=== PATIENT | female | born 1980 | race Caucasian/White ===

== ENCOUNTER 2024-04-23 10:30 | Emergency (ER) | payer OTHER, SELFPAY ==
[2024-04-23 10:31] VITALS: BMI 20.4
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
[2024-04-23] MEDS: NSS 1000 IV (10:51)
[2024-04-23 10:52] LABS: % Basophils 0.7 % (0-2); % Eosinophils 1.1 % (0-6); % Immature Granulocytes 0.5 % (0-0.5); % Lymphocytes 9.6 % (20.5-51.1); % Monocytes 4.6 % (1.7-9.3); % Neutrophils 83.5 % (42.2-75.2); Absolute Basophils 0.1 10^3/uL (0-0.2); Absolute Eosinophils 0.1 10^3/uL (0-0.7); Absolute Immature Granulocytes 0.1 10^3/uL (0-0.05); Absolute Lymphocytes 1.2 10^3/uL (1.2-3.4); Absolute Monocytes 0.6 10^3/uL (0.1-0.6); Absolute Neutrophils 10.7 10^3/uL (1.4-6.5); Hematocrit 34.7 % (37.0-47.0); Hemoglobin 11.7 g/dL (12.0-16.0); Mean Corp Hgb Conc. 33.7 g/dL (33.0-37.0); Mean Corpuscular Hgb 28.7 pg (27.0-31.0); Mean Platelet Volume 8.8 fL (7.4-10.4); Nucleated Red Blood Cells % 0 %; Platelet Count 291 10^3/uL (130-400); Red Blood Cell Count 4.08 10^6/uL (4.20-5.40); Red Cell Dist. Width 15.2 % (11.5-14.5); White Blood Cell Count 12.9 10^3/uL (4.8-10.8)
[2024-04-23 11:02] LABS: HCG, Serum Qualitative Screen Negative
[2024-04-23 11:06] LABS: ALT (SGPT) < 10 U/L (0-35); AST (SGOT) 16 U/L (14-36); Albumin 4.5 g/dl (3.5-5.0); Alkaline Phosphatase 42 U/L (38-126); Blood Urea Nitrogen 14 mg/dl (7-17); Calcium 9.7 mg/dl (8.4-10.2); Carbon Dioxide 23 mmol/L (22-30); Chloride 109 mmol/L (98-107); Estimated Creatinine Clearance 80 ml/min; Glucose 108 mg/dl (70-99); Sodium 139 mmol/L (135-145); Total Bilirubin 0.3 mg/dl (0.2-1.3); Total Protein 6.8 g/dl (6.3-8.2); eGFR > 60.00
[2024-04-23 11:08] LABS: Alcohol None Detected
[2024-04-23 11:14] LABS: Troponin I < 0.012 ng/ml
[2024-04-23 11:14] LABS: Amphetamines Negative (Negative); Barbiturates Positive (Negative); Benzodiazepines Negative (Negative); Buprenorphine Negative (Negative); Cocaine Negative (Negative); Methamphetamines Negative (Negative)
[2024-04-23 11:15] LABS: Marijuana Negative (Negative); Methadone Negative (Negative); Opiates Negative (Negative); Phencyclidine Negative (Negative); Tricyclic Antidepressants Negative (Negative)
[2024-04-23] MEDS: TYLENOL 1000 MG PO (11:22)
[2024-04-23 12:27] VITALS: BP 125/97
[2024-04-23 14:42] VITALS: BP 106/66
[2024-04-23 15:00] VITALS: BP 104/58
[2024-04-23] MEDS: TORADOL 15 MG IV (17:13)
[2024-04-23 17:19] VITALS: BP 131/81
--- NOTE | 2024-04-23 19:54 | W.PN.UPDATE ---
Update Note
Progress Note Update
Asked to review case remotely by ED CHRIS Navarro at ~1 pm. History provided to me via TT. I reviewed images remotely and there are no prior images available for this patient at [facility] nor at [facility].
Discussed with CHRIS Navarro that given it was reported that patients last shunt malfunction and revision was at [facility] in 2013, and shunt initially placed at [facility], I advised that it is best that patient be transferred to one of
these facilities where previous shunt records/last shunt surgery were performed for expeditious evaluation and workup for possible shunt malfunction. Additionally, cranial neurosurgical capabilities are not available at [facility] currently.
It was reported by CHRIS Navarro at 3:35 pm that [facility] Neurosurgery refused patient as did [facility] and that she 'was planning to admit to medicine' at [facility].
AT ~4:30 pm, I was informed by TT by hospitalist that they did not feel comfortable admitting patient and advised transfer.
I re-emphasized transfer to the facility ([facility]) that has her imaging and neurosurgical records, especially as this hospital is comparably equidistant from [facility], and patient has been reported to me as neurologically nonfocal.
Discussion held at this time regarding ED to Hospitalist service at [facility].
I was informed at ~5:[address] Hummel that both neurosurgery and hospitalist at [facility] has refused transfer.
Discussion held via TT with Dr. Hummel and also with nursing tunnel heading supervisor at [facility] reviewing clinical case for potential transfer to [facility].
Ultimately, it was felt that patient may benefit from ED to ED transfer to [facility], as it is in the best interest of patient so as not to delay workup and if neurosurgical records from [facility] can be reviewed and compared with today's
records, that expeditious additional workup and treatment can be initiated, if needed.
I asked if ED to ED transfer was attempted at [facility] today for this patient, and was informed that it was not, and this would not be possible, per Dr. Hummel.
I was informed at ~7:[address] Hummel, plan will be to attempt transfer to [facility]
[2024-04-23] MEDS: OFIRMEV 100 IV (20:30)
== END 2024-04-23 21:28 | disposition short-term general hospital (02) ==
LOC: EMR 10:30
PROVIDERS: Physician Assistant; EMERGENCY PHYSICIAN Emergency Medicine; FAMILY PHYSICIAN Psychiatry & Neurology Neurology
DX: R41.82 Altered mental status, unspecified (principal); R93.0 Abnormal findings on diagnostic imaging of skull and head, not elsewhere classified; V49.40XA Driver injured in collision with unspecified motor vehicles in traffic accident, initial encounter; Y92.410 Unspecified street and highway as the place of occurrence of the external cause; E03.9 Hypothyroidism, unspecified; Z45.41 Encounter for adjustment and management of cerebrospinal fluid drainage device; Z79.890 Hormone replacement therapy; Z98.2 Presence of cerebrospinal fluid drainage device
CPT/HCPCS: 99284; 96374; 96375; 96361; 70450; 71045; 74018; 80053; 80306; 82077; 84484; 84703; 85025; 93005